=== PATIENT | female | born 1960 | race American Indian/Alaskan Native ===

== ENCOUNTER 2020-06-01 05:14 | Emergency (ER) | payer OTHER ==
[2020-06-01] MEDS ORDERED: ASPIRIN 325 MG TAB PO ONE (05:25)
--- NOTE | 2020-06-01 06:09 | XRay Report ---
CHEST 2 VIEWS INDICATION / CLINICAL INFORMATION: chest pain. COMPARISON: None available. FINDINGS: SUPPORT DEVICES: None. HEART / MEDIASTINUM: No significant abnormality. LUNGS / PLEURA: No significant pulmonary or pleural abnormality. No pneumothorax. ADDITIONAL FINDINGS: No significant additional findings. IMPRESSION: 1. No acute findings. Signer Name: Melo Yan MD Signed: 06/01/2020 6:04 AM Workstation Name: [id number]
[2020-06-01 06:23] LABS: Alanine Aminotransferase 13 units/L (7-56); Albumin 4.3 g/dL (3.9-5); BUN/Creatinine Ratio 14; Blood Urea Nitrogen 10 mg/dL (7-17); Calcium 8.9 mg/dL (8.4-10.2)
[2020-06-01 06:24] LABS: Hemolysis Index 13
[2020-06-01 06:35] LABS: Basophils % (Auto) 0.4 % (0.0-1.8); Eosinophils % (Auto) 1.9 % (0.0-4.3); Hematocrit 37.4 % (30.3-42.9); Hemoglobin 12.9 gm/dl (10.1-14.3); Lymphocytes % (Auto) 33.1 % (13.4-35.0); Mean Corpuscular HGB Conc 35 % (30-34); Mean Corpuscular Volume 86 fl (79-97); Mean Platelet Volume 7.4 fl (6-12); Monocytes % (Auto) 11.8 % (0.0-7.3); Platelet Count 274 K/mm3 (140-440); Red Blood Count 4.33 M/mm3 (3.65-5.03); Red Cell Distribution Width 13.6 % (13.2-15.2)
[2020-06-01 06:36] LABS: Eosinophils # (Auto) 0.1 K/mm3 (0.0-0.4); Lymphocytes # (Auto) 1.5 K/mm3 (1.2-5.4); Monocytes # (Auto) 0.6 K/mm3 (0.0-0.8)
--- NOTE | 2020-06-01 09:58 | Electrocardiograph Report ---
[facility] Test Date: 2020-06-01 Test Time: 05:24:58 Pat Name: LUPE MOSHER Department: Room: Gender: F [employer] Specialist: CHANDNI : 1960 Requested By: SHAILESH COPE Order Number: [id number] Reading MD: Leonid Ozuna Measurements Intervals [place] Rate: 56 P: 69 MS: 170 QRS: 33 QRSD: 83 T: 86 QT: 415 QTc: 400 Interpretive Statements Sinus bradycardia Anteroseptal infarct, age indeterminate No previous ECG available for comparison Electronically Signed On 06-01-2020 6:58:08 PDT by Leonid Ozuna
--- NOTE | 2020-06-01 10:55 | Emergency Department Report ---
ED Chest Pain HPI - General Chief Complaint: Chest Pain Stated Complaint: CHEST PAIN Time Seen by Provider: 06/01/20 10:35 Source: patient Mode of arrival: Ambulatory Limitations: No Limitations - History of Present Illness Initial Comments: Chief complaint: "I have not been feeling well for the past 1 to 2 weeks. HPI: This is a 59-year-old female without significant past medical history who presents with "heart fluttering" for the past 1 to 2 weeks. She has noticed on her apple watch that her heart rate is fast even when she is at rest. She matt es chest pain. She denies shortness of breath. She denies syncope. She is currently symptom-free. The episodes occurs 1-2 times per day. She denies use of tobacco alcohol or recreational drugs. She drinks 1 cup of coffee per day. 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 She has not received primary care in the past 4 years. Since relocating to [place] she has not obtained a PCP. She has made an appointment with a new PCP on Thursday. Father has extensive medical history including end-stage renal disease on dialysis, cardiac disease, diabetes mellitus. MD Complaint: other (Palpitations) -: Gradual, week(s) (1 to 2 weeks) Onset: during rest Pain Radiation: none Severity: mild Severity scale (0 -10): 0 Consistency: now resolved Improves With: nothing Worsens With: nothing Treatments Prior to Arrival: none - Related Data Allergies Allergy/AdvReac Type Severity Reaction Status Date / Time No Known Allergies Allergy Unverified 06/01/20 05:17 Heart Score - HEART Score History: Slightly suspicious EKG: Non-specific Age: 45-65 Risk factors: 1-2 risk factors Troponin: < normal limit HEART Score: 3 ED Review of Systems ROS: Stated complaint: CHEST PAIN Other details as noted in HPI Comment: All other systems reviewed and negative Constitutional: denies: fever, malaise Respiratory: denies: cough, shortness of breath Cardiovascular: palpitations ED Past Medical Hx - Past Medical History Previous Medical History?: No - Surgical History Past Surgical History?: No - Family History Family history: diabetes, renal disease, vascular disease - Social History Smoking Status: Never Smoker Substance Use Type: None ED Physical Exam - General Limitations: No Limitations General appearance: alert, in no apparent distress, other (Healthy articulate nontoxic well-appearing) - Head Head exam: Present: atraumatic, normocephalic - Eye Eye exam: Present: normal appearance - ENT ENT exam: Present: mucous membranes moist - Neck Neck exam: Present: normal inspection, full ROM - Respiratory Respiratory exam: Present: normal lung sounds bilaterally. Absent: respiratory distress, wheezes, rales, rhonchi - Cardiovascular Cardiovascular Exam: Present: regular rate, normal rhythm, normal heart sounds. Absent: systolic murmur, diastolic murmur, rubs, gallop - GI/Abdominal GI/Abdominal exam: Present: soft, normal bowel sounds. Absent: distended, tenderness, guarding, rebound - Extremities Exam Extremities exam: Present: normal inspection - Neurological Exam Neurological exam: Present: alert, oriented X3 - Psychiatric Psychiatric exam: Present: normal affect, normal mood - Skin Skin exam: Present: warm, dry, intact, normal color. Absent: rash ED Course Vital Signs 06/01/20 05:21 Temperature 98.2 F Pulse Rate 66 Respiratory 18 Rate Blood Pressure 159/85 O2 Sat by Pulse 99 Oximetry ED Medical Decision Making - Lab Data Result diagrams: 06/01/20 05:44 06/01/20 05:44 Laboratory Results - last 24 hr 06/01/20 06/01/20 06/01/20 05:44 05:44 07:44 WBC 4.7 RBC 4.33 Hgb 12.9 Hct 37.4 MCV 86 MCH 30 MCHC 35 H RDW 13.6 Plt Count 274 Lymph % (Auto) 33.1 Stephens % (Auto) 11.8 H Eos % (Auto) 1.9 Baso % (Auto) 0.4 Lymph # (Auto) 1.5 Stephens # (Auto) 0.6 Eos # (Auto) 0.1 Baso # (Auto) 0.0 Add Manual Diff Complete Seg Neutrophils % 52.8 Seg Neutrophils # 2.5 Sodium 141 Potassium 3.9 Chloride 106.7 Carbon Dioxide 25 Anion Gap 13 BUN 10 Creatinine 0.7 Estimated GFR > 60 BUN/Creatinine Ratio 14 Glucose 99 Calcium 8.9 Total Bilirubin 0.30 AST 18 ALT 13 Alkaline Phosphatase 84 Troponin T < 0.010 Total Protein 7.6 Albumin 4.3 Albumin/Globulin Ratio 1.3 - EKG Data EKG shows normal: sinus rhythm, intervals, QRS complexes, ST-T waves Rate: bradycardia - EKG Data 06/01/20 10:40 EKG interpreted by me sinus bradycardia rate [address] elevation poor wave R progression normal axis normal intervals 06/01/20 10:42 - Radiology Data Radiology results: report reviewed cxr 2 views: no acute findings - Medical Decision Making This is a 59-year-old female without significant past medical history who presents with episodic palpitations over the past 1 to 2 weeks with elevated heart rate seen on apple watch. Differential diagnosis includes: Arrhythmia such as atrial flutter or atrial fibrillation PVCs ectopic beats, sinus tachycardia due to endocrine causes such as hyperthyroidism. I do not suspect life-threatening condition such as acute coronary syndrome or pulmonary embolism. I have referred patient to [facility] for further cardiac evaluation. I have also faxed referral request to the [facility]. Patient strongly urged to initiate primary care with new PCP. Patient understands return precautions: Frequent episodes of palpitation, chest pain, syncope, shortness of breath or any new symptoms. Heart score 3 Patient did have elevated blood pressure throughout her ED stay. I have encouraged her to have blood pressure rechecked by a new PCP. Critical care attestation.: If time is entered above; I have spent that time in minutes in the direct care of this critically ill patient, excluding procedure time. ED Disposition Clinical Impression: Palpitations, Elevated blood pressure reading Disposition: - TO HOME OR SELFCARE Is pt being admited?: No Does the pt Need Aspirin: No Condition: Stable Instructions: Palpitations, [id number] Referrals: PRIMARY CARE, [Primary Care Provider] - 3-5 Days NELA LR MD [Staff Physician] - 3-5 Days
[2020-06-01 11:50] VITALS: BP 162/92
== END 2020-06-01 11:48 | disposition home or self-care (01) ==
LOC: ED 05:14
DX: R20.0 Anesthesia of skin (principal); R03.0 Elevated blood-pressure reading, without diagnosis of hypertension
CPT/HCPCS: 36415; 71046; 80053; 84484; 85025; 93005